=== PATIENT | male | born 1945 | race Native Hawaiian/Other Pacific Islander ===

== ENCOUNTER 2016-09-03 09:55 | Inpatient (IN) | payer OTHER ==
[~2016-09-03 09:55] MED LIST: ACID CONTROL150 MG PO; ALBUAER5 INH; AMLO2.5T PO; DOXA2TAB PO; METO25TA4 PO; NAPROSYN375 MG OR; NIFE30TA PO; ONDA4TAB3 PO; PROVENTIL IN; RANITIDINE 150150 MG PO; Z-PAK PO
== END 2016-10-04 09:00 | disposition still patient (30) ==
LOC: PAVC 09:55
PROVIDERS: ADMIT Internal Medicine
DX: Z51.89 Encounter for other specified aftercare (principal)

== ENCOUNTER 2016-10-04 10:00 | Inpatient (IN) | payer OTHER | END 2016-11-04 13:09 | disposition still patient (30) | LOC: PAVC 10:00 | PROVIDERS: ADMIT Internal Medicine | DX: Z51.89 Encounter for other specified aftercare (principal) ==

== ENCOUNTER 2016-10-20 04:50 | Outpatient (CLI) | payer OTHER | END 2016-10-20 22:55 | disposition home or self-care (01) | LOC: RAD 04:50 | DX: R07.81 Pleurodynia (principal) ==

== ENCOUNTER 2016-11-04 13:15 | Inpatient (IN) | payer OTHER | END 2016-12-02 13:23 | disposition still patient (30) | LOC: PAVC 13:15 | PROVIDERS: ADMIT Internal Medicine | DX: Z51.89 Encounter for other specified aftercare (principal) ==

== ENCOUNTER 2016-11-09 04:46 | Outpatient (CLI) | payer OTHER ==
[2016-11-09 04:56] LABS: PLATELET COUNT 216 K/uL (142-355)
== END 2016-11-09 20:02 | disposition home or self-care (01) ==
LOC: LAB 04:46
PROVIDERS: Internal Medicine
DX: J45.998 Other asthma (principal); K21.9 Gastro-esophageal reflux disease without esophagitis
CPT/HCPCS: 36415; 85027

== ENCOUNTER 2016-12-02 13:51 | Inpatient (IN) | payer OTHER ==
[2016-12-14] MEDS ORDERED: PROTONIX20 MG PO (16:37)
[2016-12-14] MEDS ORDERED: DOXA2TAB PO (16:38)
[2016-12-14] MEDS ORDERED: CETI10TA PO (16:38)
[2016-12-14] MEDS ORDERED: ZANTAC 75 PO (16:38)
[2016-12-14] MEDS ORDERED: FERROUS SULF325 M1 OR (16:39)
[2016-12-14] MEDS ORDERED: AMLO2.5T PO (16:39)
[2016-12-14] MEDS ORDERED: FURO40TA93 PO (16:39)
[2016-12-14] MEDS ORDERED: [UNRECOGNIZED DRUG - CODE] IN (16:40)
== END 2017-01-02 08:12 | disposition still patient (30) ==
LOC: PAVC 13:51
PROVIDERS: ADMIT Internal Medicine
DX: B96.1 Klebsiella pneumoniae [K. pneumoniae] as the cause of diseases classified elsewhere (principal); K55.1 Chronic vascular disorders of intestine; K56.2 Volvulus; Z48.815 Encounter for surgical aftercare following surgery on the digestive system; F70 Mild intellectual disabilities; D64.9 Anemia, unspecified; J44.9 Chronic obstructive pulmonary disease, unspecified; K21.9 Gastro-esophageal reflux disease without esophagitis; M62.81 Muscle weakness (generalized)
CPT/HCPCS: 87070; 87205

== ENCOUNTER 2016-12-04 06:00 | Outpatient (CLI) | payer OTHER ==
[2016-12-04 07:03] LABS: POTASSIUM 3.8 mmol/L (3.6-5.2)
[2016-12-04 07:08] LABS: PLATELET COUNT 231 K/uL (142-355)
== END 2016-12-04 19:45 | disposition home or self-care (01) ==
LOC: LAB 06:00
PROVIDERS: Internal Medicine
DX: I10 Essential (primary) hypertension (principal); J44.9 Chronic obstructive pulmonary disease, unspecified; K21.9 Gastro-esophageal reflux disease without esophagitis
CPT/HCPCS: 80053; 85027

== ENCOUNTER 2016-12-14 11:31 | Inpatient (IN) | payer OTHER ==
[~2016-12-14] VITALS: Ht 167.6 cm; Wt 66.3 kg
[2016-12-14] VITALS (8 sets, daily range): BP systolic 92–116; BP diastolic 59–75; TEMP 97.6–98.5; Ht 167.6 cm; Wt 66.3 kg
[2016-12-14 12:50] LABS: POTASSIUM 3.8 mmol/L (3.6-5.2)
[2016-12-14 13:50] LABS: PLATELET COUNT 305 K/uL (142-355)
[2016-12-14] MEDS ORDERED: PROTONIX20 MG PO (16:37)
[2016-12-14] MEDS ORDERED: ZANTAC 75 PO (16:38)
[2016-12-14] MEDS ORDERED: CETI10TA PO (16:38)
[2016-12-14] MEDS ORDERED: DOXA2TAB PO (16:38)
[2016-12-14] MEDS ORDERED: FURO40TA93 PO (16:39)
[2016-12-14] MEDS ORDERED: AMLO2.5T PO (16:39)
[2016-12-14] MEDS ORDERED: FERROUS SULF325 M1 OR (16:39)
[2016-12-14] MEDS ORDERED: [UNRECOGNIZED DRUG - CODE] IN (16:40)
[2016-12-15] VITALS (14 sets, daily range): BP systolic 90–151; BP diastolic 40–78; TEMP 97.6–98.3
[2016-12-15 09:03] LABS: PLATELET COUNT 225 K/uL (142-355)
[2016-12-15 09:16] LABS: POTASSIUM 3.2 mmol/L (3.6-5.2)
[2016-12-16] VITALS (22 sets, daily range): BP systolic 92–130; BP diastolic 58–92; TEMP 97.6–98.4
[2016-12-16 08:21] LABS: PLATELET COUNT 226 K/uL (142-355)
[2016-12-16 08:39] LABS: POTASSIUM 4.1 mmol/L (3.6-5.2)
[2016-12-17] VITALS (13 sets, daily range): BP systolic 115–162; BP diastolic 61–83; TEMP 98.2–98.9
[2016-12-17 11:12] LABS: PLATELET COUNT 229 K/uL (142-355)
[2016-12-17 11:22] LABS: POTASSIUM 3.6 mmol/L (3.6-5.2); SODIUM 137 mmol/L (136-145)
[2016-12-18 00:07] VITALS: BP 147/94; TEMP 98.1
[2016-12-18 05:17] LABS: PLATELET COUNT 215 K/uL (142-355)
[2016-12-18 05:42] LABS: POTASSIUM 3.9 mmol/L (3.6-5.2); SODIUM 133 mmol/L (136-145)
[2016-12-18 05:55] VITALS: BP 140/91; TEMP 98.2
[2016-12-18 08:00] VITALS: BP 124/56; TEMP 98.2
[2016-12-18 12:00] VITALS: BP 143/83; TEMP 98.1
[2016-12-18 16:00] VITALS: BP 144/86; TEMP 98.2
[2016-12-18 20:00] VITALS: BP 126/67; TEMP 97.8
[2016-12-19] VITALS: BP 121/64; TEMP 98.1
[2016-12-19 04:00] VITALS: BP 123/69; TEMP 98
[2016-12-19 05:22] LABS: PLATELET COUNT 272 K/uL (142-355)
[2016-12-19 05:44] LABS: POTASSIUM 3.6 mmol/L (3.6-5.2); SODIUM 132 mmol/L (136-145)
[2016-12-19 08:00] VITALS: BP 138/92; TEMP 98.2
[2016-12-19 12:00] VITALS: BP 145/76; TEMP 98.7
[2016-12-19 16:00] VITALS: BP 145/76; TEMP 98.7
[2016-12-19 20:36] VITALS: BP 154/76; TEMP 98.1
[2016-12-20] VITALS (7 sets, daily range): BP systolic 142–168; BP diastolic 66–87; TEMP 98–98.6
[2016-12-20 05:34] LABS: PLATELET COUNT 312 K/uL (142-355)
[2016-12-20 06:00] LABS: SODIUM 134 mmol/L (136-145)
[2016-12-21 04:00] VITALS: BP 131/66; TEMP 98.4
[2016-12-21 04:30] LABS: PLATELET COUNT 388 K/uL (142-355)
[2016-12-21 04:51] LABS: POTASSIUM 3.8 mmol/L (3.6-5.2); SODIUM 134 mmol/L (136-145)
[2016-12-21 08:00] VITALS: BP 146/95; TEMP 98
[2016-12-21 12:00] VITALS: BP 150/88; TEMP 97.8
[2016-12-21 16:00] VITALS: BP 160/91; TEMP 98
[2016-12-21 20:00] VITALS: BP 127/83; TEMP 98.9
[2016-12-22] VITALS: BP 144/92; TEMP 98.9
[2016-12-22 04:00] VITALS: BP 165/87; TEMP 98.4
[2016-12-22 08:00] VITALS: BP 131/89; TEMP 98.2
[2016-12-22 08:44] LABS: PLATELET COUNT 422 K/uL (142-355)
[2016-12-22 09:20] LABS: POTASSIUM 4.3 mmol/L (3.6-5.2); SODIUM 138 mmol/L (136-145)
== END 2016-12-22 13:50 | DRG 330 ==
LOC: ED 11:31 → MED/SURG 15:09 → ICU 12-15 17:09 → MED/SURG 12-17 12:00
PROVIDERS: Emergency Medicine; ADMIT Specialist
PROC: 0DSH0ZZ Reposition Cecum, Open Approach (ICD-10-PCS; principal; 2016-12-15)
DX: K56.2 Volvulus (principal); E87.1 Hypo-osmolality and hyponatremia; N39.0 Urinary tract infection, site not specified; I10 Essential (primary) hypertension; R11.2 Nausea with vomiting, unspecified; D64.89 Other specified anemias; R06.09 Other forms of dyspnea; B96.1 Klebsiella pneumoniae [K. pneumoniae] as the cause of diseases classified elsewhere
CPT/HCPCS: 36415; 36600; 80048; 80053; 81000; 82150; 82550; 82805; 82962; 83605; 83690; 83735; 84100; 84484; 85027; 85379; 87077; 87086; 87088; 87186; 93005; 94760; 96361; 96372; 96374; 99285; J0295; J0330; J1650; J2250; J2270; J2405; J2704; J2710; J2765; J3010; J3490; Q9963

== ENCOUNTER 2017-01-02 08:21 | Inpatient (IN) | payer OTHER ==
[~2017-01-02 08:21] MED LIST changes: +CETI10TA PO; +FERROUS SULF325 M1 OR; +FURO40TA93 PO; +PROTONIX20 MG PO; +ZANTAC 75 PO; +[UNRECOGNIZED DRUG - CODE] IN
== END 2017-02-01 11:00 | disposition still patient (30) ==
LOC: PAVC 08:21
PROVIDERS: ADMIT Internal Medicine
DX: B96.1 Klebsiella pneumoniae [K. pneumoniae] as the cause of diseases classified elsewhere (principal); K55.1 Chronic vascular disorders of intestine; K56.2 Volvulus; Z48.815 Encounter for surgical aftercare following surgery on the digestive system; F70 Mild intellectual disabilities; D64.9 Anemia, unspecified; J44.9 Chronic obstructive pulmonary disease, unspecified; K21.9 Gastro-esophageal reflux disease without esophagitis; M62.81 Muscle weakness (generalized)

== ENCOUNTER 2017-01-06 11:02 | Emergency (ER) | payer OTHER ==
[~2017-01-06] VITALS: Ht 167.6 cm; Wt 65.3 kg
[2017-01-06 12:03] LABS: PLATELET COUNT 288 K/uL (142-355)
[2017-01-06 12:14] LABS: POTASSIUM 4.1 mmol/L (3.6-5.2)
[2017-01-06 13:39] VITALS: BP 121/74; TEMP 98
== END 2017-01-06 14:15 | disposition home or self-care (01) ==
LOC: ED 11:02
PROVIDERS: Emergency Medicine
DX: L03.311 Cellulitis of abdominal wall (principal); T81.4XXA Infection following a procedure, initial encounter; K59.09 Other constipation; R11.10 Vomiting, unspecified
CPT/HCPCS: 80053; 82150; 83605; 83690; 85027; 96361; 96374; 99285; J1885

== ENCOUNTER 2017-01-08 02:43 | Outpatient (CLI) | payer OTHER ==
[2017-01-08 04:09] LABS: PLATELET COUNT 304 K/uL (142-355)
== END 2017-01-08 19:04 | disposition home or self-care (01) ==
LOC: LAB 02:43
PROVIDERS: Internal Medicine
DX: J44.9 Chronic obstructive pulmonary disease, unspecified (principal); I10 Essential (primary) hypertension; K21.9 Gastro-esophageal reflux disease without esophagitis
CPT/HCPCS: 85027

== ENCOUNTER 2017-01-29 15:33 | Outpatient (CLI) | payer OTHER | END 2017-01-29 19:13 | disposition home or self-care (01) | LOC: LAB 15:33 | DX: Z16.24 Resistance to multiple antibiotics (principal) | CPT/HCPCS: 87081 ==

== ENCOUNTER 2017-02-01 11:04 | Inpatient (IN) | payer OTHER | END 2017-03-04 11:12 | disposition still patient (30) | LOC: PAVC 11:04 | PROVIDERS: ADMIT Internal Medicine | DX: Z51.89 Encounter for other specified aftercare (principal) ==

== ENCOUNTER 2017-02-03 05:01 | Outpatient (CLI) | payer OTHER ==
[2017-02-03 05:35] LABS: PLATELET COUNT 270 K/uL (142-355)
== END 2017-02-03 19:07 | disposition home or self-care (01) ==
LOC: LAB 05:01
PROVIDERS: Internal Medicine
DX: D64.9 Anemia, unspecified (principal)
CPT/HCPCS: 36415; 85027

== ENCOUNTER 2017-03-04 11:16 | Inpatient (IN) | payer OTHER | END 2017-04-03 16:08 | disposition still patient (30) | LOC: PAVC 11:16 | PROVIDERS: ADMIT Internal Medicine | DX: Z51.89 Encounter for other specified aftercare (principal) ==

== ENCOUNTER 2017-03-06 05:21 | Outpatient (CLI) | payer OTHER ==
[2017-03-06 06:29] LABS: PLATELET COUNT 295 K/uL (142-355)
== END 2017-03-06 06:30 | disposition home or self-care (01) ==
LOC: LAB 05:21
PROVIDERS: Internal Medicine
DX: D64.89 Other specified anemias (principal)
CPT/HCPCS: 85027

== ENCOUNTER 2017-04-03 16:18 | Inpatient (IN) | payer OTHER | END 2017-05-04 13:02 | disposition still patient (30) | LOC: PAVC 16:18 | PROVIDERS: ADMIT Internal Medicine | DX: Z51.89 Encounter for other specified aftercare (principal) ==

== ENCOUNTER 2017-04-05 03:27 | Outpatient (CLI) | payer OTHER ==
[2017-04-05 04:01] LABS: PLATELET COUNT 312 K/uL (142-355)
== END 2017-04-05 04:30 | disposition home or self-care (01) ==
LOC: LAB 03:27
PROVIDERS: Internal Medicine
DX: D64.89 Other specified anemias (principal); J44.9 Chronic obstructive pulmonary disease, unspecified
CPT/HCPCS: 36415; 85027

== ENCOUNTER 2017-05-04 14:24 | Inpatient (IN) | payer OTHER | END 2017-06-04 09:45 | disposition still patient (30) | LOC: PAVC 14:24 | PROVIDERS: ADMIT Internal Medicine | DX: Z51.89 Encounter for other specified aftercare (principal) ==

== ENCOUNTER 2017-05-12 02:20 | Outpatient (CLI) | payer OTHER ==
[2017-05-12 04:52] LABS: PLATELET COUNT 293 K/uL (142-355)
== END 2017-05-12 03:20 | disposition home or self-care (01) ==
LOC: LAB 02:20
PROVIDERS: Internal Medicine
DX: D64.89 Other specified anemias (principal)
CPT/HCPCS: 36415; 85027

== ENCOUNTER 2017-06-01 13:56 | Outpatient (CLI) | payer OTHER | END 2017-06-01 15:05 | disposition home or self-care (01) | LOC: RAD 13:56 | DX: R10.84 Generalized abdominal pain (principal) ==

== ENCOUNTER 2017-06-04 10:05 | Inpatient (IN) | payer OTHER | END 2017-07-04 09:39 | disposition still patient (30) | LOC: PAVC 10:05 | PROVIDERS: ADMIT Internal Medicine | DX: Z51.89 Encounter for other specified aftercare (principal) ==

== ENCOUNTER 2017-06-09 03:56 | Outpatient (CLI) | payer OTHER ==
[2017-06-09 04:41] LABS: PLATELET COUNT 315 K/uL (142-355)
[2017-06-09 04:56] LABS: POTASSIUM 3.9 mmol/L (3.6-5.2)
== END 2017-06-09 05:00 | disposition home or self-care (01) ==
LOC: LAB 03:56
PROVIDERS: Internal Medicine
DX: D64.89 Other specified anemias (principal)
CPT/HCPCS: 80053; 85027

== ENCOUNTER 2017-07-04 09:43 | Inpatient (IN) | payer OTHER | END 2017-08-04 14:22 | disposition still patient (30) | LOC: PAVC 09:43 | PROVIDERS: ADMIT Internal Medicine ==

== ENCOUNTER 2017-07-06 04:37 | Outpatient (CLI) | payer OTHER ==
[2017-07-06 05:34] LABS: PLATELET COUNT 308 K/uL (142-355)
== END 2017-07-06 05:40 | disposition home or self-care (01) ==
LOC: LAB 04:37
PROVIDERS: Internal Medicine
DX: D64.89 Other specified anemias (principal)
CPT/HCPCS: 85027

== ENCOUNTER 2017-07-26 14:04 | Outpatient (CLI) | payer OTHER | END 2017-07-26 19:33 | disposition home or self-care (01) | LOC: LAB 14:04 | DX: R39.15 Urgency of urination (principal) | CPT/HCPCS: 81000; 87077; 87086; 87088; 87185; 87186 ==

== ENCOUNTER 2017-08-04 15:27 | Inpatient (IN) | payer OTHER | END 2017-09-03 10:33 | disposition still patient (30) | LOC: PAVC 15:27 | PROVIDERS: ADMIT Internal Medicine ==

== ENCOUNTER 2017-08-05 04:38 | Outpatient (CLI) | payer OTHER ==
[2017-08-05 06:29] LABS: PLATELET COUNT 310 K/uL (142-355)
== END 2017-08-05 05:40 | disposition home or self-care (01) ==
LOC: LAB 04:38
PROVIDERS: Internal Medicine
DX: D64.89 Other specified anemias (principal)
CPT/HCPCS: 85027

== ENCOUNTER 2017-09-03 11:08 | Inpatient (IN) | payer OTHER ==
[2017-09-15] MEDS ORDERED: PROAIR HFA IN (22:53)
[2017-09-15] MEDS ORDERED: ALBUTEROL0.083 % IN (22:54)
[2017-09-15] MEDS ORDERED: MIRALAX3350 N1 PO (22:55)
[2017-09-15] MEDS ORDERED: TRAM50TA PO (22:56)
[2017-09-15] MEDS ORDERED: ASCO500T18 PO (22:59)
[2017-09-15] MEDS ORDERED: FE TABS325 MG PO (23:01)
[2017-09-15] MEDS ORDERED: FLOVENT HFA110 MCG IN (23:05)
[2017-09-15] MEDS ORDERED: FURO40TA93 PO (23:06)
[2017-09-15] MEDS ORDERED: FLONASE INH (23:08)
[2017-09-15] MEDS ORDERED: COMBIVENT RESPIMAT INH (23:12)
[2017-09-15] MEDS ORDERED: CETI10TA PO (23:13)
[2017-09-15] MEDS ORDERED: ZANTAC300 MG PO (23:15)
[2017-09-15] MEDS ORDERED: ENSURE PLUS PO (23:17)
[2017-09-30] MEDS ORDERED: PROTONIX20 MG PO ×2 (13:13→13:26)
[2017-09-30] MEDS ORDERED: TRAZ50TA36 PO (13:15)
[2017-09-30] MEDS ORDERED: ORAZINC220 MG PO (13:17)
[2017-09-30] MEDS ORDERED: DONE5TAB PO (13:18)
[2017-09-30] MEDS ORDERED: MULTTAB52 PO (13:20)
[2017-09-30] MEDS ORDERED: ASCO500T18 PO (13:21)
[2017-09-30] MEDS ORDERED: LEXAPRO10 MG PO (13:22)
[2017-09-30] MEDS ORDERED: MEMANTINE HCL10 MG PO (13:24)
[2017-09-30] MEDS ORDERED: FIBER LAXATIV0.52 GM PO (13:28)
[2017-09-30] MEDS ORDERED: MUPI2OIN2 TOP (13:31)
== END 2017-10-04 11:18 | disposition still patient (30) ==
LOC: PAVC 11:08
PROVIDERS: ADMIT Internal Medicine

== ENCOUNTER 2017-09-06 05:47 | Outpatient (CLI) | payer OTHER ==
[2017-09-06 06:42] LABS: PLATELET COUNT 293 K/uL (142-355)
== END 2017-09-06 06:50 | disposition home or self-care (01) ==
LOC: LAB 05:47
PROVIDERS: Internal Medicine
DX: D64.89 Other specified anemias (principal)
CPT/HCPCS: 36415; 85027

== ENCOUNTER 2017-09-30 10:40 | Inpatient (IN) | payer OTHER ==
[2017-09-30] VITALS (17 sets, daily range): BP systolic 81–123; BP diastolic 59–85; TEMP 97.5–98.3; Ht 157.5 cm; Wt 69.9 kg
[~2017-09-30] VITALS: Ht 157.5 cm; Wt 69.9 kg
[~2017-09-30 10:40] MED LIST changes: +ALBUTEROL0.083 % IN; +ASCO500T18 PO; +COMBIVENT RESPIMAT INH; +ENSURE PLUS PO; +FE TABS325 MG PO; +FLONASE INH; +FLOVENT HFA110 MCG IN; +MIRALAX3350 N1 PO; +PROAIR HFA IN; +TRAM50TA PO; +ZANTAC300 MG PO
[2017-09-30] MEDS ORDERED: PROTONIX20 MG PO ×2 (13:13→13:26)
[2017-09-30] MEDS ORDERED: TRAZ50TA36 PO (13:15)
[2017-09-30] MEDS ORDERED: ORAZINC220 MG PO (13:17)
[2017-09-30] MEDS ORDERED: DONE5TAB PO (13:18)
[2017-09-30] MEDS ORDERED: MULTTAB52 PO (13:20)
[2017-09-30] MEDS ORDERED: ASCO500T18 PO (13:21)
[2017-09-30] MEDS ORDERED: LEXAPRO10 MG PO (13:22)
[2017-09-30] MEDS ORDERED: MEMANTINE HCL10 MG PO (13:24)
[2017-09-30] MEDS ORDERED: FIBER LAXATIV0.52 GM PO (13:28)
[2017-09-30] MEDS ORDERED: MUPI2OIN2 TOP (13:31)
[2017-09-30 13:59] LABS: PLATELET COUNT 340 K/uL (142-355)
[2017-09-30 14:11] LABS: POTASSIUM 3.9 mmol/L (3.6-5.2)
[2017-10-01] VITALS (11 sets, daily range): BP systolic 82–129; BP diastolic 46–70; TEMP 98–99.1
[2017-10-01 06:03] LABS: PLATELET COUNT 316 K/uL (142-355)
[2017-10-01 06:08] LABS: POTASSIUM 3.7 mmol/L (3.6-5.2)
[2017-10-02] VITALS: BP 116/57; TEMP 98
[2017-10-02 04:00] VITALS: BP 93/48; TEMP 98.1
[2017-10-02 05:19] LABS: PLATELET COUNT 339 K/uL (142-355)
[2017-10-02 05:47] LABS: POTASSIUM 3.4 mmol/L (3.6-5.2)
[2017-10-02 08:00] VITALS: BP 118/57; TEMP 98.2
== END 2017-10-02 15:00 | DRG 312 ==
LOC: MED/SURG 10:40 → ICU 10:40 → MED/SURG 10-01 10:40
PROVIDERS: ADMIT Internal Medicine
DX: R55 Syncope and collapse (principal); I10 Essential (primary) hypertension; J44.9 Chronic obstructive pulmonary disease, unspecified; F70 Mild intellectual disabilities; R13.19 Other dysphagia; Z91.81 History of falling; K21.9 Gastro-esophageal reflux disease without esophagitis; N62 Hypertrophy of breast
CPT/HCPCS: 36415; 80053; 82550; 82553; 84484; 85027; 93005; 93306

== ENCOUNTER 2017-10-02 18:03 | Outpatient (CLI) | payer OTHER ==
[~2017-10-02 18:03] MED LIST changes: +DONE5TAB PO; +FIBER LAXATIV0.52 GM PO; +LEXAPRO10 MG PO; +MEMANTINE HCL10 MG PO; +MULTTAB52 PO; +MUPI2OIN2 TOP; +ORAZINC220 MG PO; +TRAZ50TA36 PO
== END 2017-10-02 20:22 | disposition home or self-care (01) ==
LOC: RAD 18:03
DX: M25.551 Pain in right hip (principal)

== ENCOUNTER 2017-10-04 11:24 | Inpatient (IN) | payer OTHER | END 2017-11-04 11:15 | disposition still patient (30) | LOC: PAVC 11:24 | PROVIDERS: ADMIT Internal Medicine ==

== ENCOUNTER 2017-10-06 08:50 | Outpatient (CLI) | payer OTHER | END 2017-10-06 21:34 | disposition home or self-care (01) | LOC: CT 08:50 | DX: M25.551 Pain in right hip (principal); R55 Syncope and collapse ==

== ENCOUNTER 2017-10-08 01:20 | Outpatient (CLI) | payer OTHER ==
[2017-10-08 04:10] LABS: PLATELET COUNT 388 K/uL (142-355)
== END 2017-10-09 05:15 | disposition home or self-care (01) ==
LOC: LAB 01:20
PROVIDERS: Internal Medicine
DX: D64.89 Other specified anemias (principal)
CPT/HCPCS: 85027

== ENCOUNTER 2017-11-04 11:23 | Inpatient (IN) | payer OTHER | END 2017-12-02 10:41 | disposition still patient (30) | LOC: PAVC 11:23 | PROVIDERS: ADMIT Internal Medicine ==

== ENCOUNTER 2017-11-12 06:07 | Outpatient (CLI) | payer OTHER ==
[2017-11-12 06:35] LABS: PLATELET COUNT 417 K/uL (142-355)
== END 2017-11-12 21:03 | disposition home or self-care (01) ==
LOC: LAB 06:07
PROVIDERS: Internal Medicine
DX: D64.89 Other specified anemias (principal); I10 Essential (primary) hypertension
CPT/HCPCS: 85027

== ENCOUNTER 2017-11-23 13:16 | Outpatient (CLI) | payer OTHER ==
[2017-11-23 16:16] LABS: POTASSIUM 3.9 mmol/L (3.6-5.2); SODIUM 141.2 mmol/L (136-145)
== END 2017-11-23 19:50 | disposition home or self-care (01) ==
LOC: LAB 13:16
PROVIDERS: Internal Medicine
DX: R41.82 Altered mental status, unspecified (principal)
CPT/HCPCS: 80053; 81000; 87077; 87086; 87088; 87186

== ENCOUNTER 2017-12-02 11:10 | Inpatient (IN) | payer OTHER | END 2018-01-02 08:00 | disposition still patient (30) | LOC: PAVC 11:10 | PROVIDERS: ADMIT Internal Medicine ==

== ENCOUNTER 2017-12-07 05:55 | Outpatient (CLI) | payer OTHER ==
[2017-12-07 06:41] LABS: PLATELET COUNT 256 K/uL (142-355)
[2017-12-07 06:45] LABS: POTASSIUM 3.7 mmol/L (3.6-5.2)
== END 2017-12-07 18:16 | disposition home or self-care (01) ==
LOC: LABW 05:55
PROVIDERS: Internal Medicine
DX: I10 Essential (primary) hypertension (principal); D64.89 Other specified anemias
CPT/HCPCS: 36415; 80053; 85027

== ENCOUNTER 2017-12-09 06:45 | Outpatient (CLI) | payer OTHER | END 2017-12-09 08:00 | disposition home or self-care (01) | LOC: LAB 06:45 | DX: R82.99 Other abnormal findings in urine (principal) | CPT/HCPCS: 81000; 87077; 87086; 87088; 87186 ==

== ENCOUNTER 2017-12-13 15:06 | Outpatient (CLI) | payer OTHER | END 2017-12-13 21:34 | disposition home or self-care (01) | LOC: INF 15:06 | DX: N39.0 Urinary tract infection, site not specified (principal) | CPT/HCPCS: 96365; J0696 ==

== ENCOUNTER 2017-12-14 13:02 | Outpatient (CLI) | payer OTHER ==
[~2017-12-14] VITALS: Ht 167.6 cm; Wt 61.2 kg
[2017-12-14 13:05] VITALS: BP 114/74; TEMP 98.8
[2017-12-14 14:20] VITALS: BP 118/72; TEMP 98.8
== END 2017-12-14 14:20 | disposition home or self-care (01) ==
LOC: INF 13:02
DX: N39.0 Urinary tract infection, site not specified (principal)
CPT/HCPCS: 96365; J0696

== ENCOUNTER 2017-12-16 13:49 | Outpatient (CLI) | payer OTHER | END 2017-12-16 19:23 | disposition home or self-care (01) | LOC: INF 13:49 | DX: N39.0 Urinary tract infection, site not specified (principal) | CPT/HCPCS: 96365; J0696 ==

== ENCOUNTER 2017-12-17 11:12 | Outpatient (CLI) | payer OTHER | END 2017-12-17 13:00 | disposition home or self-care (01) | LOC: INF 11:12 | DX: N39.0 Urinary tract infection, site not specified (principal) | CPT/HCPCS: 96365; J0696 ==

== ENCOUNTER 2017-12-18 12:18 | Outpatient (CLI) | payer OTHER | END 2017-12-18 22:25 | disposition home or self-care (01) | LOC: INF 12:18 | DX: N39.0 Urinary tract infection, site not specified (principal) | CPT/HCPCS: 96365; J0696 ==

== ENCOUNTER 2017-12-22 14:17 | Outpatient (CLI) | payer OTHER | END 2017-12-22 18:55 | disposition home or self-care (01) | LOC: LAB 14:17 | DX: N39.0 Urinary tract infection, site not specified (principal) | CPT/HCPCS: 81000; 87088 ==

== ENCOUNTER 2018-01-02 09:00 | Inpatient (IN) | payer OTHER | END 2018-02-01 10:34 | disposition still patient (30) | LOC: PAVC 09:00 | PROVIDERS: ADMIT Internal Medicine ==

== ENCOUNTER 2018-02-01 11:07 | Inpatient (IN) | payer OTHER | END 2018-03-04 10:27 | disposition still patient (30) | LOC: PAVC 11:07 | PROVIDERS: ADMIT Internal Medicine ==

== ENCOUNTER 2018-02-02 04:59 | Outpatient (CLI) | payer OTHER ==
[2018-02-02 05:15] LABS: PLATELET COUNT 269 K/uL (142-355)
== END 2018-02-02 21:36 | disposition home or self-care (01) ==
LOC: LABW 04:59
PROVIDERS: Internal Medicine
DX: D64.89 Other specified anemias (principal)
CPT/HCPCS: 36415; 85027

== ENCOUNTER 2018-03-04 10:31 | Inpatient (IN) | payer OTHER | END 2018-04-03 15:07 | disposition still patient (30) | LOC: PAVC 10:31 | PROVIDERS: ADMIT Internal Medicine ==

== ENCOUNTER 2018-03-08 02:48 | Outpatient (CLI) | payer OTHER ==
[2018-03-08 03:42] LABS: PLATELET COUNT 285 K/uL (142-355)
== END 2018-03-08 22:16 | disposition home or self-care (01) ==
LOC: LAB 02:48
PROVIDERS: Internal Medicine
DX: I10 Essential (primary) hypertension (principal)
CPT/HCPCS: 36415; 85027

== ENCOUNTER 2018-04-03 15:11 | Inpatient (IN) | payer OTHER | END 2018-05-04 08:00 | disposition still patient (30) | LOC: PAVC 15:11 | PROVIDERS: ADMIT Internal Medicine ==

== ENCOUNTER 2018-05-04 09:00 | Inpatient (IN) | payer OTHER | END 2018-06-04 11:14 | disposition still patient (30) | LOC: PAVC 09:00 | PROVIDERS: ADMIT Internal Medicine ==

== ENCOUNTER 2018-05-05 05:22 | Outpatient (CLI) | payer OTHER ==
[2018-05-05 07:55] LABS: PLATELET COUNT 214 K/uL (142-355)
== END 2018-05-05 19:07 | disposition home or self-care (01) ==
LOC: LAB 05:22
PROVIDERS: Internal Medicine
DX: R68.89 Other general symptoms and signs (principal); I10 Essential (primary) hypertension
CPT/HCPCS: 36415; 85027

== ENCOUNTER 2018-06-04 11:20 | Inpatient (IN) | payer OTHER | END 2018-07-04 15:07 | disposition still patient (30) | LOC: PAVC 11:20 | PROVIDERS: ADMIT Internal Medicine ==

== ENCOUNTER 2018-07-04 16:14 | Inpatient (IN) | payer OTHER | END 2018-08-04 10:42 | disposition still patient (30) | LOC: PAVC 16:14 | PROVIDERS: ADMIT Internal Medicine ==

== ENCOUNTER 2018-07-11 04:35 | Outpatient (CLI) | payer OTHER ==
[2018-07-11 04:46] LABS: PLATELET COUNT 236 K/uL (142-355)
== END 2018-07-11 19:25 | disposition home or self-care (01) ==
LOC: LAB 04:35
PROVIDERS: Internal Medicine
DX: I10 Essential (primary) hypertension (principal)
CPT/HCPCS: 36415; 85027

== ENCOUNTER 2018-08-04 10:47 | Inpatient (IN) | payer OTHER | END 2018-09-03 07:08 | disposition still patient (30) | LOC: PAVC 10:47 | PROVIDERS: ADMIT Internal Medicine ==

== ENCOUNTER 2018-08-11 08:33 | Outpatient (CLI) | payer OTHER ==
[2018-08-11 10:30] LABS: PLATELET COUNT 272 K/uL (142-355)
== END 2018-08-11 20:10 | disposition home or self-care (01) ==
LOC: LAB 08:33
PROVIDERS: Internal Medicine
DX: I10 Essential (primary) hypertension (principal)
CPT/HCPCS: 36415; 85027

== ENCOUNTER 2018-08-18 05:17 | Outpatient (CLI) | payer OTHER | END 2018-08-18 19:26 | disposition home or self-care (01) | LOC: LAB 05:17 | DX: E55.9 Vitamin D deficiency, unspecified (principal); D64.9 Anemia, unspecified | CPT/HCPCS: 36415; 82306; 83540 ==

== ENCOUNTER 2018-09-03 07:15 | Inpatient (IN) | payer OTHER | END 2018-10-04 09:40 | disposition still patient (30) | LOC: PAVC 07:15 | PROVIDERS: ADMIT Internal Medicine ==

== ENCOUNTER 2018-09-12 06:00 | Outpatient (CLI) | payer OTHER ==
[2018-09-12 08:01] LABS: PLATELET COUNT 262 K/uL (142-355)
== END 2018-09-12 22:44 | disposition home or self-care (01) ==
LOC: LAB 06:00
PROVIDERS: Internal Medicine
DX: R68.89 Other general symptoms and signs (principal); E55.9 Vitamin D deficiency, unspecified; D64.9 Anemia, unspecified
CPT/HCPCS: 85027

== ENCOUNTER 2018-10-04 10:11 | Inpatient (IN) | payer OTHER | END 2018-11-04 08:41 | disposition still patient (30) | LOC: PAVC 10:11 | PROVIDERS: ADMIT Internal Medicine ==

== ENCOUNTER 2018-11-04 09:13 | Inpatient (IN) | payer OTHER | END 2018-12-02 13:52 | disposition still patient (30) | LOC: PAVC 09:13 | PROVIDERS: ADMIT Internal Medicine ==

== ENCOUNTER 2018-11-07 08:14 | Outpatient (CLI) | payer OTHER ==
[2018-11-07 09:13] LABS: PLATELET COUNT 260 K/uL (142-355)
== END 2018-11-07 20:46 | disposition home or self-care (01) ==
LOC: LAB 08:14
PROVIDERS: Internal Medicine
DX: R68.89 Other general symptoms and signs (principal); Z79.899 Other long term (current) drug therapy
CPT/HCPCS: 36415; 85027

== ENCOUNTER 2018-12-02 14:04 | Inpatient (IN) | payer OTHER | END 2019-01-02 13:05 | disposition still patient (30) | LOC: PAVC 14:04 | PROVIDERS: ADMIT Internal Medicine ==

== ENCOUNTER 2019-01-02 13:08 | Inpatient (IN) | payer OTHER | END 2019-02-01 15:56 | disposition still patient (30) | LOC: PAVC 13:08 | PROVIDERS: ADMIT Internal Medicine ==

== ENCOUNTER 2019-01-05 05:06 | Outpatient (CLI) | payer OTHER ==
[2019-01-05 06:30] LABS: PLATELET COUNT 227 K/uL (142-355)
== END 2019-01-05 19:08 | disposition home or self-care (01) ==
LOC: LAB 05:06
PROVIDERS: Internal Medicine
DX: R68.89 Other general symptoms and signs (principal); I10 Essential (primary) hypertension; J44.9 Chronic obstructive pulmonary disease, unspecified
CPT/HCPCS: 85027

== ENCOUNTER → 2019-01-19 | Outpatient (CLI) | payer OTHER | LOC: LAB 21:56 | DX: Z12.5 Encounter for screening for malignant neoplasm of prostate (principal) | CPT/HCPCS: 84153 ==

== ENCOUNTER 2019-02-01 16:24 | Inpatient (IN) | payer OTHER | END 2019-03-04 09:42 | disposition still patient (30) | LOC: PAVC 16:24 | PROVIDERS: ADMIT Internal Medicine | DX: Z51.89 Encounter for other specified aftercare (principal) ==

== ENCOUNTER 2019-02-03 05:39 | Outpatient (CLI) | payer OTHER ==
[2019-02-03 06:30] LABS: PLATELET COUNT 233 K/uL (142-355)
== END 2019-02-03 19:56 | disposition home or self-care (01) ==
LOC: LAB 05:39
PROVIDERS: Internal Medicine
DX: E61.1 Iron deficiency (principal); R68.89 Other general symptoms and signs
CPT/HCPCS: 83540; 85027

== ENCOUNTER 2019-03-04 09:49 | Inpatient (IN) | payer OTHER | END 2019-04-03 13:50 | disposition still patient (30) | LOC: PAVC 09:49 | PROVIDERS: ADMIT Internal Medicine ==

== ENCOUNTER 2019-03-08 04:28 | Outpatient (CLI) | payer OTHER ==
[2019-03-08 06:25] LABS: PLATELET COUNT 233 K/uL (142-355)
== END 2019-03-08 23:21 | disposition home or self-care (01) ==
LOC: LAB 04:28
PROVIDERS: Internal Medicine
DX: K21.0 Gastro-esophageal reflux disease with esophagitis (principal); J44.9 Chronic obstructive pulmonary disease, unspecified
CPT/HCPCS: 85027

== ENCOUNTER 2019-04-03 13:55 | Inpatient (IN) | payer OTHER | END 2019-05-04 12:34 | disposition still patient (30) | LOC: PAVC 13:55 | PROVIDERS: ADMIT Internal Medicine ==

== ENCOUNTER 2019-04-11 04:37 | Outpatient (CLI) | payer OTHER ==
[2019-04-11 06:32] LABS: PLATELET COUNT 246 K/uL (142-355)
== END 2019-04-11 19:57 | disposition home or self-care (01) ==
LOC: LAB 04:37
PROVIDERS: Internal Medicine
DX: K21.0 Gastro-esophageal reflux disease with esophagitis (principal); R03.0 Elevated blood-pressure reading, without diagnosis of hypertension; I27.0 Primary pulmonary hypertension
CPT/HCPCS: 36415; 85027

== ENCOUNTER 2019-05-04 12:44 | Inpatient (IN) | payer OTHER | END 2019-06-04 17:19 | disposition still patient (30) | LOC: PAVC 12:44 | PROVIDERS: ADMIT Internal Medicine ==

== ENCOUNTER 2019-05-09 05:36 | Outpatient (CLI) | payer OTHER ==
[2019-05-09 10:57] LABS: PLATELET COUNT 247 K/uL (142-355)
== END 2019-05-09 23:12 | disposition home or self-care (01) ==
LOC: LAB 05:36
PROVIDERS: Internal Medicine
DX: R68.89 Other general symptoms and signs (principal); I10 Essential (primary) hypertension
CPT/HCPCS: 36415; 85027

== ENCOUNTER 2019-06-04 17:23 | Inpatient (IN) | payer OTHER | END 2019-07-04 13:00 | disposition still patient (30) | LOC: PAVC 17:23 | PROVIDERS: ADMIT Internal Medicine ==

== ENCOUNTER 2019-06-06 10:40 | Outpatient (CLI) | payer OTHER ==
[2019-06-06 10:56] LABS: PLATELET COUNT 245 K/uL (142-355)
[2019-06-06 11:18] LABS: POTASSIUM 3.8 mmol/L (3.6-5.2)
== END 2019-06-06 22:54 | disposition home or self-care (01) ==
LOC: LAB 10:40
PROVIDERS: Internal Medicine
DX: R68.89 Other general symptoms and signs (principal); R79.89 Other specified abnormal findings of blood chemistry; I10 Essential (primary) hypertension
CPT/HCPCS: 80053; 85027

== ENCOUNTER 2019-07-04 13:07 | Inpatient (IN) | payer OTHER | END 2019-08-04 12:19 | disposition still patient (30) | LOC: PAVC 13:07 | PROVIDERS: ADMIT Internal Medicine ==

== ENCOUNTER 2019-07-07 04:46 | Outpatient (CLI) | payer OTHER ==
[2019-07-07 05:37] LABS: PLATELET COUNT 273 K/uL (142-355)
== END 2019-07-07 21:58 | disposition home or self-care (01) ==
LOC: LAB 04:46
PROVIDERS: Internal Medicine
DX: I10 Essential (primary) hypertension (principal)
CPT/HCPCS: 85027

== ENCOUNTER 2019-08-04 13:58 | Inpatient (IN) | payer OTHER | END 2019-09-03 08:00 | disposition still patient (30) | LOC: PAVC 13:58 | PROVIDERS: ADMIT Internal Medicine ==

== ENCOUNTER 2019-08-09 03:56 | Outpatient (CLI) | payer OTHER ==
[2019-08-09 06:29] LABS: PLATELET COUNT 305 K/uL (142-355)
== END 2019-08-09 21:28 | disposition home or self-care (01) ==
LOC: LAB 03:56
PROVIDERS: Internal Medicine
DX: D50.8 Other iron deficiency anemias (principal)
CPT/HCPCS: 83540; 85027

== ENCOUNTER 2019-09-03 09:00 | Inpatient (IN) | payer OTHER | END 2019-10-04 09:32 | disposition still patient (30) | LOC: PAVC 09:00 | PROVIDERS: ADMIT Internal Medicine ==

== ENCOUNTER 2019-09-04 06:31 | Outpatient (CLI) | payer OTHER ==
[2019-09-04 08:21] LABS: PLATELET COUNT 235 K/uL (142-355)
== END 2019-09-04 20:53 | disposition home or self-care (01) ==
LOC: LAB 06:31
PROVIDERS: Internal Medicine
DX: D64.89 Other specified anemias (principal)
CPT/HCPCS: 85027

== ENCOUNTER 2019-10-04 09:37 | Inpatient (IN) | payer OTHER | END 2019-11-04 10:48 | disposition still patient (30) | LOC: PAVC 09:37 | PROVIDERS: ADMIT Internal Medicine ==

== ENCOUNTER 2019-10-09 05:19 | Outpatient (CLI) | payer OTHER ==
[2019-10-09 06:28] LABS: PLATELET COUNT 259 K/uL (142-355)
== END 2019-10-09 22:30 | disposition home or self-care (01) ==
LOC: LAB 05:19
PROVIDERS: Internal Medicine
DX: D64.89 Other specified anemias (principal)
CPT/HCPCS: 85027

== ENCOUNTER 2019-10-26 16:18 | Outpatient (CLI) | payer OTHER | END 2019-10-26 23:09 | disposition home or self-care (01) | LOC: LAB 16:18 | DX: R63.1 Polydipsia (principal); Z79.899 Other long term (current) drug therapy | CPT/HCPCS: 83036 ==

== ENCOUNTER 2019-11-04 10:51 | Inpatient (IN) | payer OTHER | END 2019-12-03 14:13 | disposition still patient (30) | LOC: PAVC 10:51 | PROVIDERS: ADMIT Internal Medicine ==

== ENCOUNTER 2019-11-05 04:44 | Outpatient (CLI) | payer OTHER ==
[2019-11-05 06:44] LABS: PLATELET COUNT 344 K/uL (142-355)
== END 2019-11-05 19:01 | disposition home or self-care (01) ==
LOC: LAB 04:44
PROVIDERS: Internal Medicine
DX: D64.9 Anemia, unspecified (principal)
CPT/HCPCS: 85027

== ENCOUNTER 2019-12-03 14:20 | Inpatient (IN) | payer OTHER | END 2020-01-03 11:51 | disposition still patient (30) | LOC: PAVC 14:20 | PROVIDERS: ADMIT Internal Medicine ==

== ENCOUNTER 2019-12-04 06:09 | Outpatient (CLI) | payer OTHER ==
[2019-12-04 06:47] LABS: PLATELET COUNT 346 K/uL (142-355)
[2019-12-04 06:58] LABS: POTASSIUM 3.1 mmol/L (3.6-5.2)
== END 2019-12-04 19:09 | disposition home or self-care (01) ==
LOC: LAB 06:09
PROVIDERS: Internal Medicine
DX: D64.9 Anemia, unspecified (principal); I10 Essential (primary) hypertension; J44.9 Chronic obstructive pulmonary disease, unspecified; I48.91 Unspecified atrial fibrillation
CPT/HCPCS: 80053; 85027

== ENCOUNTER 2019-12-05 11:16 | Outpatient (CLI) | payer OTHER | END 2019-12-05 19:29 | disposition home or self-care (01) | LOC: LAB 11:16 | DX: M62.84 Sarcopenia (principal) | CPT/HCPCS: 83735 ==

== ENCOUNTER → 2019-12-05 | Outpatient (CLI) | payer OTHER | LOC: LAB 22:24 | DX: E83.49 Other disorders of magnesium metabolism (principal) ==

== ENCOUNTER 2020-01-03 12:25 | Inpatient (IN) | payer OTHER | END 2020-02-01 07:00 | disposition E | LOC: PAVC 12:25 | PROVIDERS: ADMIT Internal Medicine ==

== ENCOUNTER 2020-01-12 13:06 | Outpatient (CLI) | payer OTHER ==
[2020-01-12 14:52] LABS: PLATELET COUNT 309 K/uL (142-355)
== END 2020-01-12 20:30 | disposition home or self-care (01) ==
LOC: LAB 13:06
PROVIDERS: Internal Medicine
DX: E61.2 Magnesium deficiency (principal); R13.10 Dysphagia, unspecified; R60.0 Localized edema
CPT/HCPCS: 36415; 83735; 85027